=== PATIENT | male | born 1970 | race Caucasian/White ===

== ENCOUNTER 2020-09-17 11:51 | Emergency (ER) | payer OTHER ==
[~2020-09-17] VITALS: Ht 177.8 cm; Wt 74.8 kg
[2020-09-17] MEDS ORDERED: BP MED (12:47)
== END 2020-09-17 12:49 | disposition home or self-care (01) ==
LOC: ER 11:51
DX: S62.525A Nondisplaced fracture of distal phalanx of left thumb, initial encounter for closed fracture (principal); Z87.891 Personal history of nicotine dependence; W23.0XXA Caught, crushed, jammed, or pinched between moving objects, initial encounter
CPT/HCPCS: 73140; 99283-25

== ENCOUNTER 2021-04-15 11:44 | Emergency (ER) | payer OTHER ==
[~2021-04-15] VITALS: Ht 177.8 cm; Wt 74.8 kg
[~2021-04-15 11:44] MED LIST: BP MED
[2021-04-15] MEDS ORDERED: Norco 5-325 Ta1 EACH PO (14:12)
== END 2021-04-15 14:27 | disposition home or self-care (01) ==
LOC: ER 11:44
DX: S22.32XA Fracture of one rib, left side, initial encounter for closed fracture (principal); I10 Essential (primary) hypertension; Z79.899 Other long term (current) drug therapy; Z87.891 Personal history of nicotine dependence; W01.0XXA Fall on same level from slipping, tripping and stumbling without subsequent striking against object, initial encounter
CPT/HCPCS: 71101; 99283-25